=== PATIENT | male | born 1960 | race Caucasian/White ===

== ENCOUNTER → 2017-02-18 | Outpatient (CLI) | payer BC ==
--- NOTE | 2017-02-18 12:14 | XR ---
EXAMINATION TYPE: XR chest 2V DATE OF EXAM: 02/18/2017 COMPARISON: None HISTORY: 57-year-old male with chest pain and shortness of breath TECHNIQUE: Frontal and lateral views FINDINGS: The cardiomediastinal silhouette, aorta, and pulmonary vasculature are within normal limits. Left gre ater than right apical bullous emphysema. No consolidation or pleural effusion. IMPRESSION: Bullous emphysema greatest in the left apex. Otherwise, no acute process seen.
--- NOTE | 2017-02-18 12:22 | CT ---
EXAMINATION TYPE: CT abdomen w con DATE OF EXAM: 02/18/2017 COMPARISON: NONE HISTORY: Stomach pains CT DLP: 616 mGycm Automated exposure control for dose reduction was used. TECHNIQUE: Helical acquisition of images was performed from the lung bases through the top of iliac crest to include entire abdomen. CONTRAST: Performed with Oral Contrast and with IV Contrast, patient injected with 100 mL of Omnipaque 300. FINDINGS: LUNG BASES: No significant abnormality is appreciated. LIVER/GB: There is scattered foci of decreased attenuation within the liver, there are approximately 10 lesions seen, the largest measures approximately 11 mm which statistically are likely to represent cysts. Gallbladder is unremarkable. PANCREAS: No significant abnormality is seen. SPLEEN: No significant abnormality is seen. ADRENALS: No significant abnormality is seen. KIDNEYS: Cortical cyst present on the left extends into the medullary aspect at the midpole level and measures approximately 3 cm in size BOWEL: There are areas of small bowel wall thickening which could be due to peristalsis. No evident obstruction. LYMPH NODES: No significant abnormality is appreciated. OSSEOUS STRUCTURES: Sclerotic focus in the posterior ilium on the right may represent bone island. FREE AIR: No Free Air visible ASCITES: None visible. RETROPERITONEAL ADENOPATHY: No Retroperitoneal Adenopathy visible. OTHER: IMPRESSION: NONSPECIFIC FINDINGS DESCRIBED ABOVE OF QUESTIONABLE CLINICAL SIGNIFICANCE. CONSIDER ADDITIONAL MISHA P INDICATED.
== END | disposition home or self-care (01) ==
LOC: RADCTMAIN 11:08
PROVIDERS: ATTEND Family Medicine
DX: J43.9 Emphysema, unspecified (principal); R10.84 Generalized abdominal pain
CPT/HCPCS: 71020; 74160; Q9967

== ENCOUNTER → 2017-02-28 | Outpatient (CLI) | payer BC ==
--- NOTE | 2017-02-28 11:23 | ECHOF ---
Referral Reason:I51.9 L ventricular hypertrophy MEASUREMENTS -------- HEIGHT: 177.8 cm WEIGHT: 65.8 kg BP: 170/87 RVIDd: 2.8 cm (< 3.3) IVSd: 0.9 cm (0.6 - 1.1) LVIDd: 5.0 cm (3.9 - 5.3) LVPWd: 1.0 cm (0.6 - 1.1) IVSs: 1.5 cm LVIDs: 3.2 cm LVPWs: 1.6 cm LA Diam: 2.9 cm (2.7 - 3.8) LAESV Index (A-L): 20.70 ml/m Ao Diam: 3.7 cm (2.0 - 3.7) AV Cusp: 2.2 cm (1.5 - 2.6) MV EXCURSION: 21.714 mm (> 18.000) MV EF SLOPE: 125 mm/s (70 - 150) EPSS: 0.5 cm MV E Cristobal: 0.57 m/s MV DecT: 356 ms MV A Cristobal: 0.67 m/s MV E/A Ratio: 0.84 RAP: 5.00 mmHg RVSP: 25.10 mmHg FINDINGS -------- Sinus rhythm. This was a technically good study. The left ventricular size is normal. Left ventricular wall thickness is normal. Overall left ventricular systolic function is low-normal with, an EF between 50 - 55 %. The right ventricle is normal in size. Normal LA size by volume 22+/-6 ml/m2. The right atrium is normal in size. The aortic valve is trileaflet, and appears structurally normal. No aortic stenosis or regurgitation. The mitral valve is normal. There is trace to mild mitral regurgitation. Mild tricuspid regurgitation present. Right ventricular systolic pressure is normal at < 35 mmHg. There is no pulmonic regurgitation present. The aortic root is dilated measuring 3.7cm. Normal inferior vena cava with normal inspiratory collapse consistent with estimated right atrial pressure of 5 mmHg. There is no pericardial effusion. CONCLUSIONS -------- 1. Sinus rhythm. 2. There is no pulmonic regurgitation present. 3. The aortic root is dilated measuring 3.7cm. 4. Normal inferior vena cava with normal inspiratory collapse consistent with estimated right atrial pressure of 5 mmHg. 5. There is no pericardial effusion. 6. This was a technically good study. 7. Left ventricular wall thickness is normal. 8. Overall left ventricular systolic function is low-normal with, an EF between 50 - 55 %. 9. Normal LA size by volume 22+/-6 ml/m2. 10. The aortic valve is trileaflet, and appears structurally normal. No aortic stenosis or regurgitation. 11. There is trace to mild mitral regurgitation. 12. Mild tricuspid regurgitation present. 13. Right ventricular systolic pressure is normal at < 35 mmHg. [employer]ANCE BILLER: Camryn Saucedo RDCS
== END | disposition home or self-care (01) ==
LOC: RADECHMAIN 08:34
PROVIDERS: ATTEND Family Medicine
DX: I07.1 Rheumatic tricuspid insufficiency (principal)
CPT/HCPCS: 93306

== ENCOUNTER → 2017-03-11 | Outpatient (CLI) | payer BC ==
--- NOTE | 2017-03-11 08:51 | US ---
EXAMINATION TYPE: US prostate transrectal DATE OF EXAM: 03/11/2017 COMPARISON: NONE CLINICAL HISTORY: R97.2 elevated PSA. This examination was performed using the transrectal probe. EXAM MEASUREMENTS: Gland Size: 5.2 x 2.5 x 4.8cm Volume: 62.4 Predicted PSA: 7.4 Actual PSA (if available):6.2 Seminal vesicles are unremarkable on initial images. Calcified central zone, no evident masses seen. Prostate gland is enlarged in size and heterogeneous in appearance. No worrisome peripheral zone nodu le identified. IMPRESSION: Prostate gland is enlarged in size consistent with BPH, no worrisome peripheral zone nod ule identified.
== END | disposition home or self-care (01) ==
LOC: RADUSMAIN 07:57
PROVIDERS: ATTEND Family Medicine
DX: N40.0 Benign prostatic hyperplasia without lower urinary tract symptoms (principal)
CPT/HCPCS: 76872

== ENCOUNTER 2017-03-22 11:24 | Day surgery (SDC) | payer BC ==
[2017-03-20 13:45] VITALS: BMI 22.6
[~2017-03-22 11:24] MED LIST: LACTATED RINGERS 1,000 ML IV SCH
[2017-03-22 11:41] VITALS: RESP 16; TEMP 96.5
[2017-03-22] MEDS ORDERED: LIDOCAINE 1% 20 ML VIAL (10MG/ML) FOR IV START INTRADERMA ONE (11:41)
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
[2017-03-22] MEDS ORDERED: PROPOFOL 10 MG/ML 20 ML VIAL IV ONE (13:03)
--- NOTE | 2017-03-22 13:33 | P.OP ---
Date of Procedure: 03/22/17 Preoperative Diagnosis: Screening colonoscopy Postoperative Diagnosis: Transverse colon polyp Procedure(s) Performed: Colonoscopy Implants: Anesthesia: MAC Surgeon: Tony Whitman Pathology: other (Transverse colon polyp) Condition: stable Disposition: PACU Indications for Procedure: Operative Findings: Description of Procedure: The patient's placed on the endoscopy table in the lateral position. He received IV sedation. Digital rectal exam was performed which revealed no abnormalities. Flexible colonoscope was then placed patient anus and passed throughout the entire colon. The ileocecal valve lesions. The cecum appeared normal. The ascending colon was normal. The transverse colon there was a plica polyp and this was removed with snare. Remainder the transverse colon appeared normal. The descending; appeared normal. Scope summer back the rectum and this appeared normal. Scope was withdrawn for patient.
[2017-03-22 13:51] VITALS: BP 156/79; PULSE 58
== END 2017-03-22 13:55 | disposition home or self-care (01) ==
LOC: ORWHC2ENDO 11:24
PROVIDERS: ATTEND Surgery
DX: Z12.11 Encounter for screening for malignant neoplasm of colon (principal); D12.3 Benign neoplasm of transverse colon; I10 Essential (primary) hypertension; F17.200 Nicotine dependence, unspecified, uncomplicated; Z91.048 Other nonmedicinal substance allergy status
CPT/HCPCS: 88305; 45385; J2704

== ENCOUNTER → 2017-08-14 | Outpatient (CLI) | payer BC ==
--- NOTE | 2017-08-14 09:44 | MR ---
EXAMINATION TYPE: MR abdomen wo/w con DATE OF EXAM: 08/14/2017 COMPARISON: CT abdomen February 18, 2017. HISTORY: Renal cysts, Abdominal pain, Attn liver and renal cyst CONTRAST: Standard multiplanar, multisequence MRI departmental protocol utilizing 7 mL intravenous Gadavist bernarda olinium contrast. FINDINGS: Liver: Liver is felt overall stable in size and mildly enlarged. There are several rounded subcentime ter T2 hyperintense lesions consistent with simple cysts. One of the larger lesions is noted anterior aspect anterior segment right hepatic lobe image 27 series 501 measuring 10 x 9 mm. Lesion lateral s egment left hepatic lobe appears to have been enhancing septa seen best image 445 series 701. No susp icious nodularity is seen. Main portal vein is patent and not dilated. There is satisfactory bifurcat ion into right left and central portal veins which are all patent. There are patent hepatic veins arik ining into IVC. Gallbladder is felt within normal limits without intraluminal gallstones. There is no suspicious intr ahepatic or extra hepatic biliary dilatation. Extrahepatic biliary ducts are seen best on coronal dyana ge 13 series 201. Kidneys: Corresponding to CT there is 2.6 x 2.4 cm simple appearing cyst lateral aspect mid pole leve l left kidney with slight lobulation on coronal images. There is no additional concerning solid or cy stic renal mass in either kidney. No hydronephrosis is evident bilaterally. Other: Lung bases are grossly clear. Minimal enhancing atelectatic change right lung base dependently is felt present. Pancreas and both adrenal glands are normal in size and appear grossly unremarkable . Patient is very little intra-abdominal fat. There is no suspicious bowel dilatation. There is thick ening of the gastric johnson towards the fundus, this may be product of poor distention, gastritis shou ld be excluded clinically. Visualized osseous structures are intact. IMPRESSION: Simple appearing 2.6 cm cyst centrally left kidney. Scattered small simple appearing cysts throughout the liver, single 7 mm thin-walled cyst with thin septation left aspect liver noted. No worrisome so lid or cystic renal or hepatic mass identified. Possible moderate fundal gastritis. Correlate clinica lly.
== END | disposition home or self-care (01) ==
LOC: RADMRIMAIN 08:09
PROVIDERS: ATTEND Family Medicine
DX: N28.1 Cyst of kidney, acquired (principal); K76.89 Other specified diseases of liver
CPT/HCPCS: 74183; A9581

== ENCOUNTER → 2018-03-24 | Outpatient (CLI) | payer BC ==
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
--- NOTE | 2018-03-24 13:21 | XR ---
EXAMINATION TYPE: XR cervical spine comp DATE OF EXAM: 03/24/2018 TECHNIQUE: Frontal, lateral, oblique, swimmers, and open mouth view of the cervical spine are obtaine d. HISTORY: M54.2 cervicalgia COMPARISON: None FINDINGS: The cervical spine is visualized in its entirety from C1 thru the top of T1 level, it is s atisfactory in alignment without evidence of acute fracture or dislocation. A moderate multilevel deg enerative disc disease is seen from C4 through C7 most pronounced at C5-C6 and C6-C7. This is display ed is uncovertebral hypertrophy and small anterior osteophytes with intervertebral disc space narrowi ng at C6-C7 there is mild. The pre-vertebral soft tissue appears within normal limits. The C1-C2 art iculation is within normal limits on the open mouth view. The oblique images demonstrate at least mi ld neural foraminal narrowing at C4-5 on the right. No significant radiographic neural foraminal narr owing on the left. However degree of neural foraminal narrowing and evaluation of spinal canal stenos is could be performed with MRI. There is incidental note of biapical bullous emphysematous change. IMPRESSION: 1. No acute fracture or malalignment is seen in the cervical spine. 2. Moderate multilevel degenerative disc disease from C4 through C7 with at least mild radiographic n eural foraminal narrowing on the right at C4-C5. Degree of neural foraminal stenosis and evaluation f or disc herniation/spinal canal stenosis could be performed with MRI. 3. Bullous emphysematous changes of the lung apices.
== END | disposition home or self-care (01) ==
LOC: RADXRMAIN 10:47
PROVIDERS: ATTEND Family Medicine
DX: M99.71 Connective tissue and disc stenosis of intervertebral foramina of cervical region (principal); M50.321 Other cervical disc degeneration at C4-C5 level; M19.012 Primary osteoarthritis, left shoulder
CPT/HCPCS: 72050

== ENCOUNTER 2020-01-25 10:09 | Observation (INO) | payer BC ==
[2020-01-25] MEDS ORDERED: ASPIRIN 81 MG PO STA (10:27)
[2020-01-25] MEDS ORDERED: NITROGLYCERIN SL TABS 0.4 MG TAB SUBLINGUAL STA ×3 (10:27)
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
[2020-01-25 11:03] LABS: ALT 11 U/L (4-49); AST 22 U/L (17-59); African American GFR (CKD) >90 (>60 ml/min/1.73 sqM); Albumin 4.5 g/dL (3.5-5.0); Alkaline Phosphatase 63 U/L (38-126); Anion Gap 13 mmol/L; Blood Urea Nitrogen 11 mg/dL (9-20); Calcium 9.6 mg/dL (8.4-10.2); Carbon Dioxide 26 mmol/L (22-30); Chloride 96 mmol/L (98-107); Glucose 134 mg/dL (74-99); Magnesium 1.9 mg/dL (1.6-2.3); Non-African American GFR(CKD) >90 (>60 ml/min/1.73 sqM); Potassium 3.7 mmol/L (3.5-5.1); Sodium 135 mmol/L (137-145); Total Bilirubin 0.9 mg/dL (0.2-1.3); Total Protein 7.4 g/dL (6.3-8.2)
--- NOTE | 2020-01-25 11:12 | XR ---
EXAMINATION TYPE: XR chest 2V DATE OF EXAM: 01/25/2020 COMPARISON: Chest x-ray February 18, 2017. HISTORY: Dehydrated for one week. Weakness. TECHNIQUE: Two Frontal and lateral views of the chest are obtained. FINDINGS: Background Chronic emphysematous change with moderate to severe upper lung fibrotic scarring and bleb formation is redemonstrated There is no new suspicious focal air space opacity, pleural effusion, o r pneumothorax seen. The cardiac silhouette size remains within normal limits. The osseous structu res are intact. IMPRESSION: Chronic changes without new acute pulmonary process.
[2020-01-25 11:19] LABS: Anisocytosis Slight; Basophils % (A) 0 %; Eosinophils # (A) 0.1 k/uL (0-0.7); Eosinophils % (A) 1 %; HCT 40.6 % (39.0-53.0); HGB 13.3 gm/dL (13.0-17.5); Hypochromasia Slight; Lymphocytes # (A) 1.4 k/uL (1.0-4.8); Lymphocytes % (A) 9 %; MCH 27.5 pg (25.0-35.0); MCHC 32.7 g/dL (31.0-37.0); MCV 84.3 fL (80.0-100.0); Monocytes # (A) 0.9 k/uL (0-1.0); Monocytes % (A) 6 %; Neutrophils # (A) 13.8 k/uL (1.3-7.7); Neutrophils % (A) 84 %; Platelet Count 497 k/uL (150-450); RBC 4.82 m/uL (4.30-5.90); RDW 16.1 % (11.5-15.5); WBC 16.3 k/uL (3.8-10.6)
[2020-01-25 11:30] LABS: D-Dimer 0.43 mg/L FEU (<0.60); Partial Thromboplastin Time 26.1 sec (22.0-30.0); Prothrombin Time 10.3 sec (9.0-12.0)
[2020-01-25] MEDS ORDERED: NITROGLYCERIN SL TABS 0.4 MG TAB SUBLINGUAL PRN (11:44)
[2020-01-25] MEDS ORDERED: SODIUM CHLORIDE 0.9% 1,000 ML IV STA (13:16)
[2020-01-25] MEDS: NITROGLYCERIN OINT 1 INCH/GM PACKET TOPICAL SCH ×3 (13:20→20:02)
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
[2020-01-25] MEDS: amLODIPine 10 MG TAB PO SCH (13:54)
[2020-01-25] MEDS: LISINOPRIL 10 MG TAB PO SCH (13:54)
[2020-01-25] MEDS: ONDANSETRON 4 MG/2 ML VIAL IVP PRN (15:05)
[2020-01-25 15:27] VITALS: BMI 21.2
--- NOTE | 2020-01-25 19:04 | CT ---
EXAMINATION TYPE: CT chest wo con DATE OF EXAM: 01/25/2020 Comparison chest x-ray 01/25/2020 HISTORY: CHEST PAIN CT DLP: 257.3 mGycm. Automated Exposure Control for Dose Reduction was Utilized. TECHNIQUE: CT scan of the thorax is performed without IV contrast. FINDINGS: Lack of intravenous contrast could compromise sensitivity. LUNGS: The lungs are apical bullous formation. There is no pleural effusion or pneumothorax seen. The tracheobronchial tree is patent. MEDIASTINUM: Lack of IV contrast is noted to limit evaluation for mediastinal and especially hilar ad enopathy. There are no definitive greater than 1 cm hilar or mediastinal lymph nodes. No cardiomega ly or pericardial effusion is seen. OTHER: Thoracic spinal curvature. No additional significant abnormality is seen. IMPRESSION: Apical bullous disease.
--- NOTE | 2020-01-25 19:48 | HP ---
HISTORY AND PHYSICAL 60-year-old white male who states he has had emesis with any water intake for the past week. He is unable to eat any food due to significant nausea and vomiting. He quit marijuana and heavy tobacco and his chest x-ray shows pulmonary blebs, COPD. He was admitted for atypical chest pain, but I suspect this is mostly significant abdominal pain, unclear etiology. Sounds like he needs EGD at this point due to severe to peptic ulcer disease versus an ulcer. His COPD and shortness of breath and pretty persistent vomiting for the past week despite oral intake with water only. he came to the hospital. EKG shows sinus rhythm. Nonspecific changes. Chest x-ray shows COPD/pulmonary blebs. White count 16.3, hemoglobin is 13.3. D-dimer 0.43, magnesium 1.9, creatinine 0.63, potassium 3.7, sodium 135. He has lost a lot of weight he states recently. REVIEW OF SYSTEMS: Fourteen-point review of systems as mentioned above, negative. PHYSICAL EXAMINATION: Blood pressure is 190s over 88. He has been started back on 2 blood pressure medications, amlodipine and lisinopril. CONSTITUTIONAL: He is weak, frail, looks thin, cachectic. Head normocephalic atraumatic. Pupils equal, round, reactive. LUNGS: Decreased breath sounds x4. HEART: S1, S2. ABDOMEN is tender to palpation and guarding in the epigastric area. No rebound. Positive bowel sounds. EXTREMITIES 2+ edema. NEUROLOGIC: Cranial nerves are intact. ASSESSMENT: 1. Atypical chest pain, abdominal pain, rule out peptic ulcer disease versus ulcer. 2. Hypertension. 3. Slight malnutrition. 4. Heavy alcohol and marijuana use, quit a week ago. Continue with blood pressure medications. Ultrasound of the abdomen. CT scan of the chest. Echo was ordered also. Prognosis guarded. I suspect he will need EGD in the near future for which has been consulted at this time. MMODL / IJN: [id number] /
--- NOTE | 2020-01-25 20:23 | US ---
EXAMINATION TYPE: US abdomen complete DATE OF EXAM: 01/25/2020 COMPARISON: CT same date CLINICAL HISTORY: emesis/pain. Emesis/pain x 1 week. Hx smoker. EXAM MEASUREMENTS: Liver Length: 15.0 cm Gallbladder Wall: 0.21 cm CBD: 0.27 cm Spleen: Not visualized. Right Kidney: 10.9 x 6.1 x 4.8 cm Left Kidney: 10.4 x 5.2 x 6.3 cm Pancreas: Limited due to overlying bowel gas. Liver: Anechoic areas seen. Largest measured. Septated anechoic area seen left lobe: 1.3 x 1.1 x 1.0 cm. Largest area right lobe measures: 1.0 x 1.1 x 0.7 cm., Likely represent cysts and correlate with patient's CT. Gallbladder: Internal echoes are seen. Measures 8.1 cm in length. Evidence for sonographic Nagy's sign: No CBD: Appears wnl. Spleen: Not visualized due to gas. Right Kidney: No hydronephrosis or masses seen Left Kidney: Anechoic area seen mid-pole measurin.6 x 2.8 x 3.0 cm. Images taken in prone positi on due to small patient body habitus and rib shadowing. Upper IVC: Appears wnl in its visualized portion. Abd Aorta: Atherosclerotic changes seen. *Measures 2.7 cm AP proximally-ectatic. IMPRESSION: Suspect tumefactive sludge in the gallbladder. Simple cyst left kidney.
[2020-01-25] MEDS ORDERED: hydrALAZINE HCL 20 MG/ML 1 ML VIAL IVP PRN (20:49)
[2020-01-26] MEDS: NITROGLYCERIN OINT 1 INCH/GM PACKET TOPICAL SCH ×5 (00:58→22:51)
[2020-01-26] MEDS: ONDANSETRON 4 MG/2 ML VIAL IVP PRN (01:15)
[2020-01-26 07:21] LABS: Cholesterol 149 mg/dL (<200); HDL Cholesterol 62 mg/dL (40-60); LDL Cholesterol,Calculated 75 mg/dL (0-99); Triglycerides 60 mg/dL (<150)
[2020-01-26] MEDS: ASPIRIN 81 MG PO SCH (08:07)
[2020-01-26] MEDS: amLODIPine 10 MG TAB PO SCH (08:07)
[2020-01-26] MEDS: LISINOPRIL 10 MG TAB PO SCH (08:07)
[2020-01-26] MEDS ORDERED: ASPIRIN 325 MG TAB PO SCH (09:00)
--- NOTE | 2020-01-26 10:00 | ECHOF ---
Referral Reason:cp, sob MEASUREMENTS -------- HEIGHT: 177.8 cm WEIGHT: 67.1 kg BP: 190/94 RVIDd: 2.7 cm (< 3.3) IVSd: 1.5 cm (0.6 - 1.1) LVIDd: 3.5 cm (3.9 - 5.3) LVPWd: 1.4 cm (0.6 - 1.1) IVSs: 1.8 cm LVIDs: 2.7 cm LVPWs: 2.1 cm LA Diam: 2.6 cm (2.7 - 3.8) LAESV Index (A-L): 23.30 ml/m Ao Diam: 3.8 cm (2.0 - 3.7) AV Cusp: 2.0 cm (1.5 - 2.6) MV EXCURSION: 18.612 mm (> 18.000) MV EF SLOPE: 57 mm/s (70 - 150) EPSS: 0.8 cm MV E Cristobal: 0.65 m/s MV DecT: 390 ms MV A Cristobal: 0.53 m/s MV E/A Ratio: 1.22 RAP: 5.00 mmHg RVSP: 30.88 mmHg FINDINGS -------- This was a technically good study. The left ventricular size is normal. There is moderate concentric left ventricular hypertrophy. O verall left ventricular systolic function is low-normal with, an EF between 50 - 55 %. The right ventricle is normal in size. Normal LA size by volume 22+/-6 ml/m2. The right atrium is normal in size. Interatrial and interventricular septum intact. The aortic valve is trileaflet and appears structurally normal. Trace amount of aortic regurgitatio n. Mild mitral regurgitation is present. Mild tricuspid regurgitation present. Right ventricular systolic pressure is normal at < 35 mmHg. Trace/mild (physiologic) pulmonic regurgitation. The aortic root size is normal. Normal inferior vena cava with normal inspiratory collapse consistent with estimated right atrial pre ssure of 5 mmHg. There is no pericardial effusion. CONCLUSIONS -------- 1. This was a technically good study. 2. The left ventricular size is normal. 3. There is moderate concentric left ventricular hypertrophy. 4. Overall left ventricular systolic function is low-normal with, an EF between 50 - 55 %. 5. The right ventricle is normal in size. 6. Normal LA size by volume 22+/-6 ml/m2. 7. The right atrium is normal in size. 8. Interatrial and interventricular septum intact. 9. The aortic valve is trileaflet and appears structurally normal. 10. Trace amount of aortic regurgitation. 11. Mild mitral regurgitation is present. 12. Mild tricuspid regurgitation present. 13. Right ventricular systolic pressure is normal at < 35 mmHg. 14. Trace/mild (physiologic) pulmonic regurgitation. 15. The aortic root size is normal. 16. Normal inferior vena cava with normal inspiratory collapse consistent with estimated right atrial pressure of 5 mmHg. 17. There is no pericardial effusion. BILLET HEADER: Camryn Saucedo RDCS
[2020-01-26] MEDS ORDERED: IV FLUID CONTINUATION 1,000 ML IV ONE (11:49)
[2020-01-26] MEDS ORDERED: PROPOFOL 10 MG/ML 20 ML VIAL IV ONE (11:49)
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
--- NOTE | 2020-01-26 12:08 | P.OP ---
Date of Procedure: 01/26/20 Preoperative Diagnosis: Epigastric pain Postoperative Diagnosis: Mild duodenitis Large prepyloric antral ulcer Esophagitis Procedure(s) Performed: EGD Anesthesia: MAC Surgeon: Tony Whitman Pathology: other (Duodenum, prepyloric ulcer, esophagus) Condition: stable Disposition: PACU Description of Procedure: The patient's placed on the endoscopy table in the lateral position. He received IV sedation. The gastroscope placed oropharynx and passed in into the esophagus and stomach and then through the pylorus. First and second portion duodenum appeared mildly inflamed. Biopsies performed. Scope was then back through the pylorus. There was a large prepyloric ulcer seen. There is no act van bleeding. This area is biopsied. Scope was unretroflexed and remainder stomach appeared normal. The GE junction was at 40 cm. The distal esophagus. Inflamed a biopsies performed. The proximal esophagus appeared normal. Scope was withdrawn for patient.
--- NOTE | 2020-01-26 13:23 | P.PN ---
Subjective HISTORY OF PRESENTING ILLNESS This is a pleasant 60-year-old male past medical history significant for hypertension, heavy tobacco and marijuana use. 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 Patient was seen and examined in no acute distress. He has had no further episo damian of vomiting or chest discomfort since admission. He has also been seen in evaluation by surgical services and is scheduled to undergo an EGD. CT of the chest obtained revealed an apical bullous disease. Echocardiogram revealed preserved LV systolic function with ejection fraction 50-55%, moderate concentric LVH, mild MR and mild TR. Blood pressure 124/82 heart rate 83 afebrile maintaining oxygen saturation on room air. Laboratory data reviewed, cardiac enzymes negative 3, LDL 75 and HDL 62. Currently maintained on amlodipine 10 mg daily, aspirin 81 mg daily and lisinopril 10 mg daily. PHYSICAL EXAMINATION CONSTITUTIONAL: No apparent distress. Frail. HEENT: Head is normocephalic. Pupils are equal, round. Sclerae anicteric. Mucous membranes of the mouth are moist. No JVD. No carotid bruit. CHEST EXAMINATION: Lungs are clear to auscultation. No chest wall tenderness is noted on palpation or with deep breathing. HEART EXAMINATION: Regular rate and rhythm. S1, S2 heard. No murmurs, gallops or rub. Distant heart sounds. EXTREMITIES: 2+ peripheral pulses, no lower extremity edema and no calf tenderness. ASSESSMENT Chest pain, atypical Hypertension Leukocytosis Heavy alcohol and marijuana use, quit both 1-week ago PLAN Blood pressure is controlled on current regimen. Proceed with stress test as previously ordered. If stress test is normal he is stable for discharge from a cardiac perspective. Recommend ongoing tobacco and marijuana cessation. Follow-up in the office with Dr. Saavedra in 2 weeks. Nurse Practitioner note has been reviewed, I agree with a documented findings and plan of care. Patient was seen and examined. Objective - Vital Signs Vital signs: Vital Signs Temp 97.9 F 01/26/20 08:05 Pulse 83 01/26/20 12:25 Resp 14 01/26/20 12:25 BP 124/82 01/26/20 12:25 Pulse Ox 100 01/26/20 12:25 Intake & Output 01/25/20 01/26/20 01/26/20 18:59 06:59 18:59 Intake Total 200 Balance 200 Weight 67.132 kg 55.1 kg 55.1 kg Intake: IV 200 Other: Voiding Method Toilet Toilet Toilet # Voids 2 - Labs CBC & Chem 7: 01/25/20 10:38 01/25/20 10:38 Labs: Abnormal Lab Results - Last 24 Hours (Table) 01/26/20 Range/Units 06:47 HDL Cholesterol 62 H (40-60) mg/dL
[2020-01-26] MEDS ORDERED: Potassium Replacement Protocol 1 EACH MISC MISCELLANE PRN (14:56)
--- NOTE | 2020-01-26 15:25 | ECHOS ---
STRESS ECHOCARDIOGRAM LUMASON: INDICATIONS: Chest pain. MEDICATIONS: None. BASELINE HEART RATE: 89 BASELINE BLOOD PRESSURE: 139/90 MAXIMUM HEART RATE: 150 MAXIMUM BLOOD PRESSURE: 159/86 85% MPHR: 136 100% MPHR: 160 METS: 6.8 MAXIMUM STAGE REACHED: 2 TOTAL EXERCISE TIME: 5;00 INDICATION: Chest pain Baseline EKG shows sinus rhythm, PVCs, some nonspecific ST-T wave changes. Patient exercised on Herbert protocol for a total of 5 minutes achieving 6 METS, 94% of predicted maximal heart rate without chest pain. At peak exercise, there was [address]-segment depression noted in the inferolateral leads. Baseline echo shows normal left ventricular size, wall motion and systolic function. There is concentric left ventricular hypertrophy. Postexercise, there is normal hyperdynamic response of all segments of myocardium noted. CONCLUSION: 1. Limited exercise tolerance. 2. Inconclusive EKG part of the stress test due to baseline EKG abnormalities. 3. Negative stress echo. MMDIANNAL / IJN: [id number] /
[2020-01-26 21:06] VITALS: RESP 18
--- NOTE | 2020-01-26 22:57 | PN ---
PROGRESS NOTE This patient is a 60-year-old white male, status post EGD that showed a large gastric antral ulcer, 2 cm. Remains on medication for ulcers, Protonix 40 mg a day. He is getting Norvasc, Zestril for hypertension. Prognosis is guarded. Vital signs are stable. Afebrile. CT of the chest was reviewed with him. He had a stress echo today. He had a negative stress echo. Patient will possibly be discharged home tomorrow. Outpatient workup for gallbladder. Please see further orders. MMODL / IJN: [id number] /
[2020-01-27] MEDS: NITROGLYCERIN OINT 1 INCH/GM PACKET TOPICAL SCH (03:19)
[2020-01-27] MEDS ORDERED: PANTOPRAZOLE 40 MG TABLET PO SCH (07:30)
[2020-01-27] MEDS: ASPIRIN 81 MG PO SCH (08:05)
[2020-01-27] MEDS: LISINOPRIL 10 MG TAB PO SCH (08:05)
[2020-01-27] MEDS: amLODIPine 10 MG TAB PO SCH (08:05)
[2020-01-27 08:36] LABS: Anisocytosis Slight; Basophils % (A) 0 %; Eosinophils # (A) 0.2 k/uL (0-0.7); Eosinophils % (A) 1 %; HCT 34.2 % (39.0-53.0); HGB 10.6 gm/dL (13.0-17.5); Hypochromasia Slight; Lymphocytes # (A) 1.7 k/uL (1.0-4.8); Lymphocytes % (A) 10 %; MCH 26.5 pg (25.0-35.0); MCV 85.7 fL (80.0-100.0); Mean Platelet Volume 6.8; Monocytes % (A) 6 %; Neutrophils # (A) 13.1 k/uL (1.3-7.7); Neutrophils % (A) 81 %; Platelet Count 464 k/uL (150-450); RBC 3.99 m/uL (4.30-5.90); RDW 16.6 % (11.5-15.5); WBC 16.1 k/uL (3.8-10.6)
[2020-01-27 09:19] LABS: ALT 10 U/L (4-49); AST 13 U/L (17-59); African American GFR (CKD) >90 (>60 ml/min/1.73 sqM); Albumin 3.7 g/dL (3.5-5.0); Alkaline Phosphatase 50 U/L (38-126); Anion Gap 9 mmol/L; Blood Urea Nitrogen 34 mg/dL (9-20); Carbon Dioxide 28 mmol/L (22-30); Chloride 94 mmol/L (98-107); Glucose 153 mg/dL (74-99); Non-African American GFR(CKD) >90 (>60 ml/min/1.73 sqM); Potassium 4.1 mmol/L (3.5-5.1); Sodium 131 mmol/L (137-145); Total Bilirubin 0.3 mg/dL (0.2-1.3); Total Protein 6.3 g/dL (6.3-8.2)
--- NOTE | 2020-01-27 09:22 | P.PN ---
Subjective HISTORY OF PRESENTING ILLNESS This is a pleasant 60-year-old male past medical history significant for hypertension, heavy tobacco and marijuana use. 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 He underwent stress echo yesterday that was negative for ischemia. He also had an EGD revealing an ulcer and esophagitis. He is seen and examined laying flat resting comfortably in bed in no acute distress. He continues to feel nauseated. No chest pain, shortness of breath, dizziness, palpitations or vomiting. Blood pressure 125/67 heart rate 69 afebrile and maintaining oxygen saturation on room air. PHYSICAL EXAMINATION CONSTITUTIONAL: No apparent distress. Frail. HEENT: Head is normocephalic. Pupils are equal, round. Sclerae anicteric. Mucous membranes of the mouth are moist. No JVD. No carotid bruit. CHEST EXAMINATION: Lungs are clear to auscultation. No chest wall tenderness is noted on palpation or with deep breathing. HEART EXAMINATION: Regular rate and rhythm. S1, S2 heard. No murmurs, gallops or rub. Distant heart sounds. EXTREMITIES: 2+ peripheral pulses, no lower extremity edema and no calf tenderness. ASSESSMENT Chest pain, atypical. Normal stress test. Ulcer and esophagitis Hypertension Leukocytosis Heavy alcohol and marijuana use, quit both 1-week ago PLAN Blood pressure is well controlled on current regimen. Stable for discharge from a cardiac perspective. Follow up in the office with Dr. Saavedra as needed. Nurse Practitioner note has been reviewed, I agree with a documented findings and plan of care. Patient was seen and examined. Objective - Vital Signs Vital signs: Vital Signs Temp 98.2 F 01/27/20 04:00 Pulse 69 01/27/20 04:00 Resp 18 01/27/20 04:00 BP 125/67 01/27/20 04:00 Pulse Ox 96 01/27/20 04:00 Intake & Output 01/26/20 01/27/20 01/27/20 18:59 06:59 18:59 Intake Total 320 Balance 320 Weight 55.1 kg Intake: IV 200 Oral 120 Other: Voiding Method Toilet Toilet # Voids 2 1 - Labs CBC & Chem 7: 01/27/20 08:17 01/25/20 10:38 Labs: Abnormal Lab Results - Last 24 Hours (Table) 01/27/20 Range/Units 08:17 WBC 16.1 H (3.8-10.6) k/uL RBC 3.99 L (4.30-5.90) m/uL Hgb 10.6 L (13.0-17.5) gm/dL Hct 34.2 L (39.0-53.0) % RDW 16.6 H (11.5-15.5) % Plt Count 464 H (150-450) k/uL Neutrophils # 13.1 H (1.3-7.7) k/uL
[2020-01-27 09:32] VITALS: BP 114/82; PULSE 93; TEMP 98.1
--- NOTE | 2020-01-27 09:44 | P.DS ---
Providers Date of admission: 01/25/20 11:45 Expected date of discharge: 01/27/20 Attending physician: Buzz Craig Consults: 01/25/20 11:45 Consult Physician Urgent Consulting Provider: Sandie Doran Consult Reason/Comments: cp Do you want consulting provider notified?: Yes 01/25/20 17:13 Consult Physician Urgent Consulting Provider: Tony Whitman Consult Reason/Comments: egd Do you want consulting provider notified?: Yes Primary care physician: [facility] Hospital Course: Final Diagnoses: Chest pain, atypical. Stress test reported as normal Mild duodenitis large prepyloric antral ulcer Esophagitis Hyponatremia Hypertension Leukocytosis Heavy daily alcohol and marijuana use quit both one week ago Gallbladder sludge per ultrasound, further outpatient follow-up recommended Simple left kidney cyst Liver anecolic mass, likely cysts, further follow-up outpatient recommended Apical bullous disease per CT Hospital course: This is 60-year-old gentleman admitted with chest pain, significant daily alcohol marijuana consumption, recently quit both marijuana and alcohol 1 week prior. Evaluated by cardiology and general surgery. Stress echo reported negative for ischemia. Blood pressure controlled. EGD reported a large prepyloric antral ulcer, duodenitis, esophagitis. Maintained on PPI. Cleared by both GI and cardiology for discharge. Patient is being discharged home today in a stable condition with guarded prognosis. The impression and plan of care has been dictated as directed. : I performed a history and examination of this patient, discussed the same with the dictator. I agree with the dictator's note ,documented as a scribe. Any additional findings or plans will be noted. Patient Condition at Discharge: Stable Plan - Discharge Summary Discharge Rx Participant: No New Discharge Prescriptions: New Pantoprazole Sodium [Protonix] 40 mg PO DAILY #30 tab amLODIPine [Norvasc] 10 mg PO DAILY #90 tab Lisinopril [Zestril] 10 mg PO DAILY #90 tab Discharge Medication List Pantoprazole Sodium [Protonix] 40 mg PO DAILY #30 tab 01/26/20 [Rx] Lisinopril [Zestril] 10 mg PO DAILY #90 tab 01/27/20 [Rx] amLODIPine [Norvasc] 10 mg PO DAILY #90 tab 01/27/20 [Rx] Follow up Appointment(s)/Referral(s): Nathan Saavedra MD [STAFF PHYSICIAN] - 02/11/20 4:30 pm Tony Whitman MD [STAFF PHYSICIAN] - 1 Week Buzz Craig MD [Primary Care Provider] - 3 Days Ambulatory/Diagnostic Orders: Complete Blood Count w/diff [LAB.AMB] Time Frame: 3 Days, Location: None Selected Activity/Diet/Wound Care/Special Instructions: Aspirin currently on hold secondary to large prepyloric antral ulcer, reevaluate outpatient .please bring your [place] driver's license, insurance cards, and medication list with you to your cardiology appointment.
--- NOTE | 2020-01-27 10:41 | P.PN ---
Subjective Progress Note Date: 01/27/20 CHIEF COMPLAINT: Abdominal pain HISTORY OF PRESENT ILLNESS: Patient is status post EGD revealing mild duodenitis, large prepyloric antral ulcer, and esophagitis. Patient examined this morning at the bedside. He denies abdominal pain. Tolerating diet. He is hoping to be discharged home today. PHYSICAL EXAM: VITAL SIGNS: Reviewed. GENERAL: Well-developed in no acute distress. HEENT: No sclera icterus. Extraocular movements grossly intact. Moist buccal mucosa. Head is atraumatic, normocephalic. ABDOMEN: Soft. Nondistended. Nontender. NEUROLOGIC: Alert and oriented. Cranial nerves II through XII grossly intact. ASSESSMENT: 1. Abdominal pain, status post EGD revealing mild duodenitis, large prepyloric antral ulcer, and esophagitis PLAN: -Continue diet as tolerated -Continue protonix -Stable for discharge home today. Patient to follow up outpatient with Dr. Whitman Nurse practitioner note has been reviewed by physician. Signing provider agrees with the documented findings, assessment, and plan of care. Objective - Vital Signs Vital signs: Vital Signs Temp 98.1 F 01/27/20 08:00 Pulse 93 01/27/20 08:00 Resp 18 01/27/20 08:00 BP 114/82 01/27/20 08:00 Pulse Ox 96 01/27/20 04:00 Intake & Output 01/26/20 01/27/20 01/27/20 18:59 06:59 18:59 Intake Total 320 Balance 320 Weight 55.1 kg Intake: IV 200 Oral 120 Other: Voiding Method Toilet Toilet # Voids 2 1 - Labs CBC & Chem 7: 01/27/20 08:17 01/27/20 08:17 Labs: Abnormal Lab Results - Last 24 Hours (Table) 01/27/20 01/27/20 Range/Units 08:17 08:17 WBC 16.1 H (3.8-10.6) k/uL RBC 3.99 L (4.30-5.90) m/uL Hgb 10.6 L (13.0-17.5) gm/dL Hct 34.2 L (39.0-53.0) % RDW 16.6 H (11.5-15.5) % Plt Count 464 H (150-450) k/uL Neutrophils # 13.1 H (1.3-7.7) k/uL Sodium 131 L (137-145) mmol/L Chloride 94 L (98-107) mmol/L BUN 34 H (9-20) mg/dL Creatinine 0.63 L (0.66-1.25) mg/dL Glucose 153 H (74-99) mg/dL AST 13 L (17-59) U/L
== END 2020-01-27 11:13 | disposition home or self-care (01) ==
LOC: EC 10:09 → 1SOBS 11:45
PROVIDERS: ADMIT Family Medicine; ATTEND Family Medicine
DX: R07.89 Other chest pain (principal); K29.80 Duodenitis without bleeding; K25.9 Gastric ulcer, unspecified as acute or chronic, without hemorrhage or perforation; K20.9 Esophagitis, unspecified; K29.50 Unspecified chronic gastritis without bleeding; E87.1 Hypo-osmolality and hyponatremia; I10 Essential (primary) hypertension; D72.829 Elevated white blood cell count, unspecified; N28.1 Cyst of kidney, acquired; R16.0 Hepatomegaly, not elsewhere classified; J43.9 Emphysema, unspecified; M54.5 Low back pain; K59.00 Constipation, unspecified; R63.4 Abnormal weight loss; Z68.1 Body mass index [BMI] 19.9 or less, adult; Z79.899 Other long term (current) drug therapy; Z79.82 Long term (current) use of aspirin; Z20.828 Contact with and (suspected) exposure to other viral communicable diseases; Z87.01 Personal history of pneumonia (recurrent); Z86.010 Personal history of colon polyps; Z87.891 Personal history of nicotine dependence; Z82.49 Family history of ischemic heart disease and other diseases of the circulatory system; Z80.42 Family history of malignant neoplasm of prostate; Z82.3 Family history of stroke
CPT/HCPCS: 96374; 99285; 36415; 93005 ×2; 93306; 93351; 85379; 88305; 80061; 80053 ×2; 83735; 84484; 85025 ×2; 85610; 85730; 88342; 71046; 76700; 71250; 43239; G0378 ×3; U0003; J0360; J2405 ×2

== ENCOUNTER 2020-02-15 06:07 | Day surgery (SDC) | payer BC ==
[2020-02-09 16:08] VITALS: BMI 19.1
[~2020-02-15 06:07] MED LIST changes: +ACETAMINOPHEN TAB 500 MG TAB PO ONE; +DEXAMETHASONE SOD PHOSPHATE 10 MG/ML 1 ML VIAL IV ONE; +HEPARIN SODIUM,PORCINE 5,000 UNIT/ML 1 ML VIAL SQ ONE; +HYDROmorphone 0.5 MG/0.5 ML SYRINGE IVP PRN; +ONDANSETRON 4 MG/2 ML VIAL IVP ONE
[2020-02-15 06:57] VITALS: RESP 16; TEMP 97.5
[2020-02-15] MEDS ORDERED: HEPARIN SODIUM,PORCINE 5,000 UNIT/ML 1 ML VIAL ONE (07:08)
[2020-02-15] MEDS ORDERED: ONDANSETRON 4 MG/2 ML VIAL ONE (07:08)
[2020-02-15] MEDS ORDERED: LIDOCAINE 1% (10MG/ML) FOR IV START INTRADERMA ONE (07:16)
[2020-02-15] MEDS ORDERED: NEOSTIGMINE 1 MG/ML 10 ML VIAL ONE (07:35)
[2020-02-15] MEDS ORDERED: KETOROLAC 30 MG/ML 1 ML VIAL ONE (07:35)
[2020-02-15] MEDS ORDERED: fentaNYL (PF) 50 MCG/ML 2 ML AMP ONE (07:35)
[2020-02-15] MEDS ORDERED: MIDAZOLAM 2 MG/2 ML VIAL ONE (07:35)
[2020-02-15] MEDS ORDERED: SUCCINYLCHOLINE CHLORIDE 100 MG/5 ML SYR IV ONE (07:35)
[2020-02-15] MEDS ORDERED: ROCURONIUM BROMIDE 10 MG/ML 5 ML VIAL IV ONE (07:35)
[2020-02-15] MEDS ORDERED: LIDOCAINE 1% INJ 10MG/ML (20 ML MDV) ONE (07:35)
[2020-02-15] MEDS ORDERED: PROPOFOL 10 MG/ML 20 ML VIAL IV ONE (07:35)
[2020-02-15] MEDS ORDERED: GLYCOPYRROLATE 0.2 MG/ML 2 ML VIAL ONE (07:35)
[2020-02-15] MEDS ORDERED: BUPIVACAIN-EPI 0.25%-1:200,000 30 ML VIAL SQ ONE (07:54)
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
--- NOTE | 2020-02-15 08:18 | P.OP ---
Date of Procedure: 02/15/20 Preoperative Diagnosis: Cholecystitis Cholelithiasis Postoperative Diagnosis: Cholecystitis Cholelithiasis Procedure(s) Performed: Laparoscopic cholecystectomy Anesthesia: ELIZABETH Surgeon: Tony Whitman Estimated Blood Loss (ml): 5 Pathology: other (Gallbladder) Condition: stable Disposition: PACU Description of Procedure: The patient was placed on the operating table. The patient received a general endotracheal tube anesthesia. The patients abdomen was prepped and draped in the usual sterile fashion. Through an infraumbilical stab incision, the fascia of the anterior abdominal wall was grasped with a pair of Kochers and then the Veress needle was placed in the peritoneal cavity. Position of the Veress needle was confirmed with positive drop test. The abdomen was then insufflated. After adequate insufflation, the 10 mm trocar was placed in the peritoneal cavity. Following this the laparoscope was placed in the peritoneal cavity. The patient was placed in the head-up, right side up position and then a 5 mm trocar was placed in the right lateral and right subcostal position under direct visualization. A 8 mm trocar was placed in the epigastric position. The gallbladder was grasped in the fundus and infundibulum. Traction on the gallbladder was placed in the lateral and the cephalad positions. The triangle of Calot was visualized.. The cystic duct was bluntly dissected until the union of the cystic duct and common bile duct wa s seen. A critical view of safety was achieved. The cystic duct was then divided and sealed with the Harmonic scissors. A PDS Endoloop was then placed throughout the cystic duct stump. The cystic artery divided and sealed with the Harmonic scissors. The gallbladder was then removed from the liver bed using Harmonic scissors. The gallbladder was then extracted through the epigastric port site. Operative field was checked for any bleeding spots and Harmonic scissors was used to coagulate the liver bed. The abdomen was irrigated. The trocars were removed. The skin was closed using interrupted 3-0 Vicryl suture. Dermabond dressing were applied. The patient tolerated the procedure well.
[2020-02-15 10:10] VITALS: BP 125/67; PULSE 65
== END 2020-02-15 10:09 | disposition home or self-care (01) ==
LOC: OR 06:07
PROVIDERS: ATTEND Surgery
DX: K81.1 Chronic cholecystitis (principal); I10 Essential (primary) hypertension; K21.9 Gastro-esophageal reflux disease without esophagitis; K08.89 Other specified disorders of teeth and supporting structures; Z79.899 Other long term (current) drug therapy; Z87.891 Personal history of nicotine dependence; Z87.01 Personal history of pneumonia (recurrent); Z87.19 Personal history of other diseases of the digestive system; Z86.39 Personal history of other endocrine, nutritional and metabolic disease; Z98.890 Other specified postprocedural states; Z90.89 Acquired absence of other organs; Z87.828 Personal history of other (healed) physical injury and trauma; Z79.82 Long term (current) use of aspirin; Z87.11 Personal history of peptic ulcer disease; Z82.49 Family history of ischemic heart disease and other diseases of the circulatory system; Z80.42 Family history of malignant neoplasm of prostate; Z82.3 Family history of stroke
CPT/HCPCS: 88304; 47562; J2250; J1644; J1100; J2710; J0690; J2405; J2001; J3010; J1885; J0330; J2704; J1170

== ENCOUNTER 2020-03-03 09:49 | Day surgery (SDC) | payer BC ==
[2020-03-01 14:47] VITALS: BMI 20.7
[~2020-03-03 09:49] MED LIST changes: -ACETAMINOPHEN TAB 500 MG TAB PO ONE; -DEXAMETHASONE SOD PHOSPHATE 10 MG/ML 1 ML VIAL IV ONE; -HEPARIN SODIUM,PORCINE 5,000 UNIT/ML 1 ML VIAL SQ ONE; -HYDROmorphone 0.5 MG/0.5 ML SYRINGE IVP PRN; -ONDANSETRON 4 MG/2 ML VIAL IVP ONE
[2020-03-03 10:16] VITALS: RESP 16; TEMP 97
[2020-03-03] MEDS ORDERED: PROPOFOL 10 MG/ML 20 ML VIAL IV ONE (10:45)
[2020-03-03] MEDS ORDERED: LIDOCAINE 1% INJ 10MG/ML (20 ML MDV) ONE (10:45)
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
--- NOTE | 2020-03-03 10:57 | P.OP ---
Date of Procedure: 03/03/20 Preoperative Diagnosis: Peptic ulcer disease Postoperative Diagnosis: Healing prepyloric ulcer Procedure(s) Performed: EGD Anesthesia: MAC Surgeon: Tony Whitman Pathology: other (Antrum) Condition: stable Disposition: PACU Description of Procedure: Patient's placed on the endoscopy table in the lateral position. He received IV sedation. The gastroscope placed oropharynx passed in the esophagus and stomach. Scope was placed through the pylorus. The first second portion of duodenum appeared normal. Scope was then brought back through the pylorus and the prepyloric area there was a very small ulcer seen. Was no evidence of any GI bleed. The ulcer was not biopsied. The antrum was then biopsied. The remainder the stomach appeared normal. The GE junction was at 40 cm. The distal esophagus appeared normal. The proximal esophagus appeared normal. Scope was withdrawn for patient.
[2020-03-03 11:19] VITALS: BP 131/80; PULSE 51
== END 2020-03-03 12:00 | disposition home or self-care (01) ==
LOC: ORWHC2ENDO 09:49
PROVIDERS: ATTEND Surgery
DX: K29.50 Unspecified chronic gastritis without bleeding (principal); K21.9 Gastro-esophageal reflux disease without esophagitis; I10 Essential (primary) hypertension; Z87.01 Personal history of pneumonia (recurrent); Z90.49 Acquired absence of other specified parts of digestive tract; Z98.890 Other specified postprocedural states; Z87.891 Personal history of nicotine dependence; Z80.42 Family history of malignant neoplasm of prostate; Z82.3 Family history of stroke; Z82.49 Family history of ischemic heart disease and other diseases of the circulatory system; Z79.82 Long term (current) use of aspirin; Z79.899 Other long term (current) drug therapy
CPT/HCPCS: 88305; 43239; J2001; J2704

== ENCOUNTER → 2022-11-23 | Outpatient (CLI) | payer OTHER ==
--- NOTE | 2022-11-23 10:07 | FL ---
EXAMINATION TYPE: FL barium swallow DATE OF EXAM: 11/23/2022 9:35 AM COMPARISON: CT chest 01/25/2020 CLINICAL INDICATION:Male, 62 years old with history of R13.10 DYSPHAGIA, UNSPECIFIED; TECHNIQUE: The procedure was explained and patient history elicited. All patient questions were ans wered prior to start of procedure. Multiple spot fluoroscopic images of the esophagus were obtained a fter the oral ingestion of effervescent crystals and liquid barium as the contrast agent. Fluoroscopic time: 31 seconds Fluoroscopic images: 0 Radiographs taken: 136 DAP: Not reported FINDINGS: The esophagus demonstrates normal primary and secondary peristalsis. The esophageal mucosa is smooth without evidence of focal stricture, ulceration, or abnormal outpouching. There was was free flow of contrast extending into the stomach from the esophagus. No gastroesophageal reflux disease was ident ified. IMPRESSION: 1. Normal esophagram.
== END | disposition home or self-care (01) ==
LOC: RADUSWWP 08:52
PROVIDERS: ATTEND Otolaryngology
DX: R13.10 Dysphagia, unspecified (principal)
CPT/HCPCS: 74220

== ENCOUNTER 2022-12-25 15:37 | Observation (INO) | payer OTHER ==
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
[2022-12-25 16:47] LABS: Basophils % (A) 0 %; Eosinophils # (A) 0.1 k/uL (0-0.7); Eosinophils % (A) 1 %; HCT 35.8 % (39.0-53.0); HGB 11.4 gm/dL (13.0-17.5); Lymphocytes # (A) 1.1 k/uL (1.0-4.8); Lymphocytes % (A) 7 %; MCH 27.1 pg (25.0-35.0); MCHC 31.9 g/dL (31.0-37.0); MCV 84.8 fL (80.0-100.0); Mean Platelet Volume 6.3; Monocytes # (A) 0.8 k/uL (0-1.0); Monocytes % (A) 6 %; Neutrophils # (A) 12.1 k/uL (1.3-7.7); Neutrophils % (A) 86 %; Platelet Count 639 k/uL (150-450); RBC 4.22 m/uL (4.30-5.90); RDW 14.3 % (11.5-15.5); WBC 14.1 k/uL (3.8-10.6)
[2022-12-25] MEDS ORDERED: MORPHINE SULFATE 4 MG/ML SYRINGE IV STA ×2 (17:08→18:45)
[2022-12-25] MEDS ORDERED: IBUPROFEN 600 MG TAB PO STA (17:08)
[2022-12-25 17:09] LABS: ALT 30 U/L (4-49); AST 29 U/L (17-59); African American GFR (CKD) >90 (>60 ml/min/1.73 sqM); Albumin 4.1 g/dL (3.5-5.0); Alkaline Phosphatase 104 U/L (38-126); Anion Gap 15 mmol/L; Blood Urea Nitrogen 14 mg/dL (9-20); Calcium 9.4 mg/dL (8.4-10.2); Carbon Dioxide 30 mmol/L (22-30); Chloride 94 mmol/L (98-107); Glucose 99 mg/dL (74-99); Non-African American GFR(CKD) >90 (>60 ml/min/1.73 sqM); Potassium 3.2 mmol/L (3.5-5.1); Sodium 139 mmol/L (137-145); Total Bilirubin 0.4 mg/dL (0.2-1.3)
[2022-12-25] MEDS ORDERED: NALOXONE 0.4 MG/ML 1 ML VIAL IV PRN (18:14)
[2022-12-25] MEDS ORDERED: MAG HYDROX/AL HYDROX/SIMETH 30 ML CUP PO PRN (18:40)
[2022-12-25] MEDS ORDERED: ACETAMINOPHEN TAB 325 MG TAB PO PRN (18:40)
[2022-12-25] MEDS: ONDANSETRON 4 MG/2 ML VIAL IVP PRN (18:52)
[2022-12-25] MEDS: SODIUM CHLORIDE 0.9% 1,000 ML IV SCH (18:52)
[2022-12-25 23:30] LABS: Amorphous Sediment,Urine Occasional /hpf; Appearance,Urine Clear (Clear); Bilirubin,Urine Negative (Negative); Blood,Urine Moderate (Negative); Color,Urine Yellow; Glucose,Urine (UA) Negative (Negative); Hyaline Casts,Urine 4 /lpf (0-2); Ketones,Urine Negative (Negative); Leukocyte Esterase,Urine Negative (Negative); Mucus,Urine Moderate /hpf; Nitrite,Urine Negative (Negative); Protein,Urine Trace (Negative); RBC,Urine 21 /hpf (0-5); Specific Gravity,Urine 1.028 (1.001-1.035); Squamous Epithelial Cell,Urine <1 /hpf (0-4); WBC,Urine 3 /hpf (0-5)
[2022-12-26] MEDS ORDERED: POTASSIUM CHLORIDE ER 10 MEQ TAB.ER.PRT PO STA (02:03)
[2022-12-26] MEDS ORDERED: IPRATROPIUM-ALBUTEROL 3 ML NEB INHALATION PRN (02:04)
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
[2022-12-26] MEDS: MORPHINE SULFATE 4 MG/ML SYRINGE IV PRN ×4 (02:50→21:17)
[2022-12-26] MEDS: SYMBICORT 80-4.5 MCG INHALER INHALATION SCH ×2 (07:27→19:40)
[2022-12-26] MEDS: IPRATROPIUM-ALBUTEROL 3 ML NEB INHALATION SCH ×4 (07:28→19:39)
[2022-12-26] MEDS: hydroCHLOROthiazide 25 MG TAB PO SCH (08:06)
[2022-12-26] MEDS: LOSARTAN 50 MG TAB PO SCH (08:06)
[2022-12-26] MEDS: PANTOPRAZOLE 40 MG TABLET PO SCH (08:06)
[2022-12-26] MEDS: ONDANSETRON 4 MG/2 ML VIAL IVP PRN (09:54)
[2022-12-26 11:01] LABS: Basophils # (A) 0.03 X 10*3/uL (0.00-0.10); Basophils % (A) 0.2 %; Eosinophils # (A) 0.05 X 10*3/uL (0.04-0.35); Eosinophils % (A) 0.4 %; HCT 32.4 % (39.6-50.0); HGB 10.1 g/dL (13.0-17.0); Immature Grans, Automated 0.4 %; Lymphocytes % (A) 6.8 %; MCHC 31.2 g/dL (32.0-37.0); MCV 83.3 fL (80.0-97.0); Mean Platelet Volume 8.5 fL (9.5-12.2); Monocytes # (A) 1.24 X 10*3/uL (0.20-1.00); Monocytes % (A) 9.4 %; NRBC Per 100 WBC 0 /100 WBCS (0.0-0.0); Neutrophils # (A) 10.98 X 10*3/uL (1.80-7.70); Neutrophils % (A) 82.8 %; Platelet Count 568 X 10*3/uL (140-440); RBC 3.89 X 10*6/uL (4.40-5.60); RDW 14.6 % (11.5-14.5); WBC 13.25 X 10*3/uL (4.50-10.00)
[2022-12-26 11:33] LABS: African American GFR (CKD) 134.6 (60.0-200.0); Albumin 3.6 g/dL (3.8-4.9); Albumin/Globulin Ratio 1.16 (1.60-3.17); Anion Gap 11.3 mmol/L (10.00-18.00); BUN/Creat Ratio 22.2 Ratio (12.00-20.00); Blood Urea Nitrogen 11.1 mg/dL (9.0-27.0); Calcium 9.5 mg/dL (8.7-10.3); Carbon Dioxide 26.7 mmol/L (20.0-27.5); Globulin 3.1 g/dL (1.6-3.3); Non-African American GFR(CKD) 116.1 (60.0-200.0); Potassium 3.3 mmol/L (3.5-5.5); Total Bilirubin 0.8 mg/dL (0.30-1.20); Total Protein 6.7 g/dL (6.2-8.2)
[2022-12-26] MEDS: SODIUM CHLORIDE 0.9% 1,000 ML IV SCH (15:38)
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
[2022-12-27] MEDS: MORPHINE SULFATE 4 MG/ML SYRINGE IV PRN ×3 (05:29→15:22)
[2022-12-27] MEDS: SYMBICORT 80-4.5 MCG INHALER INHALATION SCH (08:36)
[2022-12-27] MEDS: IPRATROPIUM-ALBUTEROL 3 ML NEB INHALATION SCH ×3 (08:36→15:40)
[2022-12-27] MEDS ORDERED: LACTATED RINGERS 1,000 ML IV SCH (09:17)
[2022-12-27] MEDS ORDERED: IV FLUID CONTINUATION 1,000 ML IV ONE (09:19)
[2022-12-27] MEDS ORDERED: DEXAMETHASONE SOD PHOSPHATE 4 MG/ML 1 ML VIAL IVP ONE (09:35)
[2022-12-27] MEDS ORDERED: ONDANSETRON 4 MG/2 ML VIAL IVP ONE (09:35)
[2022-12-27] MEDS ORDERED: PROPOFOL 10 MG/ML 20 ML VIAL IV ONE (10:36)
[2022-12-27] MEDS ORDERED: ROCURONIUM 10 MG/ML (5 ML VIAL) IV ONE (10:36)
[2022-12-27] MEDS ORDERED: NEOSTIGMINE 1 MG/ML 10 ML VIAL ONE (10:36)
[2022-12-27] MEDS ORDERED: LIDOCAINE 2% INJ 20 MG/ML (2 ML VIAL) ONE (10:36)
[2022-12-27] MEDS ORDERED: GLYCOPYRROLATE 0.2 MG/ML 2 ML VIAL ONE (10:36)
[2022-12-27] MEDS ORDERED: fentaNYL (PF) 50 MCG/ML 2 ML AMP ONE (10:36)
[2022-12-27] MEDS ORDERED: SUCCINYLCHOLINE CHLORIDE 200 MG/10 ML VIAL IV ONE (10:36)
[2022-12-27] MEDS ORDERED: SODIUM CHLORIDE 0.9% 500 ML 500 ML IV ONE (11:23)
--- NOTE | 2022-12-27 11:39 | P.PN ---
Subjective Progress Note Date: 12/27/22 I am seeing this patient in new consultation today 12/26/2022, in the emergency room, for a suspicious large 8.2 x 3.8 cm right superior mediastinal mass. Patient is a 62-year-old white male with past significant medical history of severe COPD, ex-smoker with a 60-ucas-zheu history, recent 40 pound weight loss over the last year, hypertension. Patient follows with his primary care provider Dr. Buzz Craig for management of his chronic medical issues. 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 Patient presented to the emergency room yesterday afternoon after leaving work early, because of some persistent back pain that is located between his scapula with some associated shortness of breath and dizziness. The pain is worse when lying on his back, especially when trying to sleep. He did have an outpatient CT of the chest without contrast which revealed a large right superior mediastinal mass measuring 8.2 x 3.8 cm, enlarged subcarinal lymph node, and thickened right adrenal gland in which metastasis cannot be ruled out. Patient is currently resting in bed, on room air, in no acute distress. He is very cachectic. A follow-up thoracic spine 2 view x-ray showed some mild to moderate degenerative disc disease without any compression collapse. It also redemonstrated the mass which was better visualized on CT. EKG showed no obvious evidence of acute ischemia. Troponin negative 1. CBC on arrival showed some leukocytosis with a WBC count of 14, hemoglobin 11.4, hematocrit 35.8, platelets 639,000. BMP on arrival showed a sodium 139, potassium 3.2, chloride 94, serum CO2 30, BUN 14, creatinine 0.53, glucose 99. Vital signs are stable. Patient will be admitted the general medical floor once bed available. The patient is seen today 12/27/2022 in follow-up on the regular medical floor. He is currently resting comfortably in bed. Awake and alert in no acute distr ess. Maintaining O2 saturations in the mid 90s on room air. He's been afebrile. Hemodynamically stable. No new labs today. He is continued on Symbicort, DuoNeb inhalations. Morphine for pain control. Objective - Vital Signs Vital signs: Vital Signs Temp 97.4 F L 12/27/22 09:20 Pulse 74 05/18/23 09:45 Resp 16 12/27/22 09:45 BP 153/74 12/27/22 09:20 Pulse Ox 97 12/27/22 09:45 FiO2 Intake & Output 12/26/22 12/27/22 12/27/22 18:59 06:59 18:59 Intake Total 300 600 Balance 300 600 Weight 58.06 kg Intake: IV 600 Oral 300 Other: # Voids 2 2 - Exam GENERAL EXAM: Alert, cachectic 62-year-old male, appears older than stated age, on room air, comfortable in no apparent distress. HEAD: Normocephalic and atraumatic EYES: Normal reaction of pupils, equal size. NOSE: Clear with pink turbinates. THROAT: No erythema or exudates. NECK: No masses, no JVD. CHEST: No chest wall deformity. LUNGS: Equal air entry with diminished lung sounds throughout; no crackles, wheeze, rhonchi or dullness. No conversational dyspnea or accessory muscle use.. CVS: S1 and S2 normal with no audible murmur, regular rhythm. No extra heart so unds ABDOMEN: No hepatosplenomegaly, active bowel sounds, no guarding or rigidity. SPINE: No scoliosis or deformity SKIN: No rashes CENTRAL NERVOUS SYSTEM: No focal deficits, tone is normal in all 4 extremities. EXTREMITIES: There is no peripheral edema, clubbing, or cyanosis. Peripheral pulses are intact. - Labs CBC & Chem 7: 12/26/22 07:24 12/26/22 07:24 Labs: Abnormal Lab Results - Last 24 Hours (Table) 12/26/22 Range/Units 07:24 Sodium 134 L (135-145) mmol/L Potassium 3.3 L (3.5-5.5) mmol/L Creatinine 0.5 L (0.6-1.5) mg/dL BUN/Creatinine Ratio 22.20 H (12.00-20.00) Ratio AST 111 H (14-35) U/L ALT 115 H (10-49) U/L Alkaline Phosphatase 222 H (41-126) U/L Albumin 3.6 L (3.8-4.9) g/dL Albumin/Globulin Ratio 1.16 L (1.60-3.17) g/dL Assessment and Plan Assessment: Persistent back pain located between his scapula and associated shortness of breath secondary to a large right superior mediastinal mass measuring 8.2 x 3.8 cm, enlarged subcarinal lymph node, and thickened right adrenal gland in which metastasis cannot be ruled out. Plan is for bronchoscopy with endobronchial ultrasound with biopsies today Cachexia, with a reported recent 40 pound weight loss over the last year Ex-smoker, with a significant smoking history of 80 pack years Severe chronic obstructive pulmonary disease, currently stable Hypertension History of peptic ulcer Plan: The patient was seen and evaluated Currently stable and on room air Plan is for EBUS with biopsies today MRI of the brain is scheduled as well The patient could be discharged later today if he tolerates the procedure well I have personally seen and examined the patient, performed the documentation and the assessment and plan as written. Number of minutes spent on the visit: 10.
[2022-12-27 12:36] VITALS: RESP 18; TEMP 98.5
[2022-12-27] MEDS: LOSARTAN 50 MG TAB PO SCH (13:05)
[2022-12-27] MEDS: hydroCHLOROthiazide 25 MG TAB PO SCH (13:05)
[2022-12-27] MEDS: PANTOPRAZOLE 40 MG TABLET PO SCH (13:06)
[2022-12-27 13:41] VITALS: BMI 18.3
--- NOTE | 2022-12-27 15:39 | MR ---
EXAMINATION TYPE: MR brain wo/w con DATE OF EXAM: 12/27/2022 COMPARISON: None HISTORY: Mets, Hx of lung cancer CONTRAST: Performed utilizing 5.5 mL intravenous Gadavist gadolinium contrast. TECHNIQUE: Multiplanar, multiecho imaging on a 3.0 Ella magnet is performed through the brain. Stud y is performed within 24 hours of arrival to the hospital. The craniovertebral junction is normal. The pituitary is normal. Diffusion-weighted imaging is performed. No abnormal hyperintensity is present to suggest an acute i ntracranial infarct or acute ischemic change. There are a few scattered punctate areas of hyperintensity on T2 and Inversion Recovery weighted sequ ences which are non-specific but can be related to microvascular ischemic changes. This is not out of proportion for the patient's age. Ventricles and sulci are appropriate for the patient age. There is some fluid within the inferior right mastoid air cells. IMPRESSIONS: 1. No acute intracranial process. 2. No suspicious enhancement or masses to suggest metastatic disease.
--- NOTE | 2022-12-27 15:55 | P.PCN ---
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 Mass effect over the lateral wall of the trachea related to the right suprahilar mass Description of Procedure: Procedure(s) Performed: 1 flexible bronchoscopy, airway inspection 2 endoscopic ultrasound (EBUS) 3 transbronchial needle aspirate of station 7 lymph nodes Surgeon: Estevan Wade Estimated Blood Loss (ml): 0 Pathology: other Condition: stable Disposition: same day Operative Findings: After obtaining the consent the patient was taken to the OR suite he was intubated and put on mechanical ventilation by anesthesia then the flexible bronchoscope was advanced to the ET tube until the trachea was seen. The trachea was abnormal starting from its midportion extending to the level of the flakita. There was irregularities in the lateral surface of the tracheal wall, essentially because irregularities probably related to mass effect caused by a right suprahilar mass. There was also some limited extrinsic compression on the lateral wall of the trachea. Bain and distal one third portion. Following that, the bronchoscope was advanced and the flakita appears normal then the scop e advanced to the left main and JAEL LB1-LB3 were seen and no endobronchial lesions were seen then the scope advanced to the lingula and the LB4 and LB5 were seen and no endobronchial lesions were seen the scope retracted and advanced to the left lower lobes LB6 to LB12 were seen one by one and no endobronchial lesions, then the scope was retracted back to the flakita and advanced to the Right main and right upper lobe bronchus was occluded with endobronchial tumor there was originating in the right suprahilar area and infiltrate in the right upper lobe bronchus causing 95% obstruction of the or ifice of the right upper lobe bronchus. Initial segment of the right upper lobe bronchus were not visualized. The surface of the tumor was friable and vascular an irregular and somewhat necrotic. Following that, the flexible bronchoscope was retracted and advanced to the BI and RML RB4 and RB5 were seen and no endobronchial lesions were seen then it was retracted and advanced to the RLL RB6 to RB12 were seen one by one and no endobronchial lesions. Under direct visualization, endobronchial biopsies of the right upper lobe bronchus tumor was obtained. Multiple endobronchial biopsies were done a total of 7-8 pieces were obtained. Limited bleeding was encountered due to these biopsies and ice cold saline was applied to control the bleeding. Adequate hemostasis was achieved. Following that, I performed endobronchial brushing and bronchial lavage of the right upper lobe endobronchial tumor. By the end of the procedure, a bronchial lavage of the right upper lobe was done, a total of 40 mL of fluid was infused in the right upper lobe intensities of fluid was aspirated. Following that, the flexible bronchoscope was removed and endobronchial ultrasound was inserted. Then EBUS was used and the lymph nodes were examined. Direct examination of the mediastinum revealed extensive lymphadenopathy along the right paratracheal border and subcarinal area. Transbronchial needle aspirate of the subcarinal lymph node was done using a 22. -gauge the TBNA needle. No further biopsies were obtained. The endobronchial ultrasound was removed and the patient was extubated and transferred to recovery in stable condition.
[2022-12-27 17:31] VITALS: BP 117/64; PULSE 73
--- NOTE | 2022-12-28 02:07 | PN ---
PROGRESS NOTE SUBJECTIVE: This 62-year-old white male remains on DuoNeb, Symbicort, HydroDIURIL, Cozaar, Protonix, morphine for pain, saturating 88-94 on room air, blood pressure 120s to 140s over 60s to 70s, pulse 71. He had a brain MRI which has shown no cancer. He had a procedure no by [facility] bronchoscopy which showed endobronchial tumor causing complete obstruction of the right upper lobe bronchus, mass effect over the lateral wall of the upper trachea related to the right suprahilar mass. Waiting for prognosis. Get Oncology to see him prior to discharge. We can wait for pathology and get him on some treatment right away. PROGNOSIS: Guarded. MMODL / IJN: [id number] /
== END 2022-12-27 18:11 | disposition home or self-care (01) ==
LOC: EC 15:37 → 5NMEDONC 18:45 → INTOOBSV 18:45 → 5NMEDONC 22:17
PROVIDERS: ADMIT Family Medicine; ATTEND Family Medicine
DX: C34.11 Malignant neoplasm of upper lobe, right bronchus or lung (principal); J44.9 Chronic obstructive pulmonary disease, unspecified; I10 Essential (primary) hypertension; Z87.01 Personal history of pneumonia (recurrent); Z80.42 Family history of malignant neoplasm of prostate; Z82.49 Family history of ischemic heart disease and other diseases of the circulatory system; R59.0 Localized enlarged lymph nodes; Z87.891 Personal history of nicotine dependence; Z87.11 Personal history of peptic ulcer disease; R63.4 Abnormal weight loss; K21.9 Gastro-esophageal reflux disease without esophagitis; Z79.51 Long term (current) use of inhaled steroids; Z79.899 Other long term (current) drug therapy
CPT/HCPCS: 96376 ×2; 96361 ×2; 96374; 96375; 99285; 36415; 94640 ×4; 93005; 88104; 88108; 88305; 88173; 80053 ×2; 83605; 84484; 85025 ×2; 81001; 88342; 88341; 70553; 31629; 31625; 31623; 31624; 31652; G0378 ×3; J0330; J2270 ×3; J1100; J2710; J2405 ×3; J3010; J2704; A9585; J2001

== ENCOUNTER → 2022-12-25 | Outpatient (CLI) | payer OTHER ==
--- NOTE | 2022-12-25 15:18 | CT ---
EXAMINATION TYPE: CT chest wo con DATE OF EXAM: 12/25/2022 COMPARISON: 01/25/2020 HISTORY: Burning chest Pain. CT DLP: 344 mGycm, Automated exposure control for dose reduction was used. CONTRAST: Performed injected with 0 mL of Isovue 300. TECHNIQUE: Axial images were obtained at 5 mm thick sections. Reconstructed images are reviewed on [employer] computer in the coronal plane. FINDINGS: Portion of the thyroid visualized is normal. There is a right suprahilar mass extending along the mediastinal border measuring 8.2 x 3.8 cm this a ppears to be displacing the esophagus towards the left lateral direction. There may be some compressi on and narrowing of the distal trachea at the level of the aortic arch. Large there is a subcarinal l ymph node which is enlarged measuring 1.7 cm. Mass versus right hilar adenopathy is present. Large left apical bulla is present. There are some scattered mild infiltrates in the medial lung apic es. The ascending aorta diameter at the level of the main pulmonary artery is 3.3 cm. The main pulmonary artery diameter at the bifurcation is 2.[address] sections are obtained through the upper abdomen. There is thickening of the right adrenal gland 1.9 cm. Metastasis should be considered. Peripelvic cyst or left renal cyst is present. IMPRESSIONS: 1. Large right superior mediastinal mass measuring 8.2 x 3.8 cm. Workup for neoplasm recommended. 2. Enlarged subcarinal lymph node. Hilar adenopathy may be difficult to differentiate from the medias tinal mass. 3. Thickened right adrenal gland, metastasis should be considered.
--- NOTE | 2022-12-25 16:43 | XR ---
EXAMINATION TYPE: XR thoracic spine 2V DATE OF EXAM: 12/25/2022 COMPARISON: NONE HISTORY: 62-year-old male R07.89, other chest pain, M54.14, radiculopathy. TECHNIQUE: 3 views FINDINGS: Right paratracheal soft tissue prominence. Slight levoconvex curvature of the thoracic spin e. 11 rib-bearing thoracic vertebral bodies. Mild to moderate degenerative disc disease upper third t horacic spine. Vertebral body heights are preserved and alignment is maintained. IMPRESSION: 1. Mild to moderate degenerative disc disease upper third thoracic thoracic spine. No vertebral compr ession collapse or malalignment. 2. Possible right paratracheal abnormal soft tissue. Refer to CT chest same day for further details.
== END | disposition home or self-care (01) ==
LOC: RADCTMAIN 14:17
PROVIDERS: ATTEND Family Medicine
DX: M51.14 Intervertebral disc disorders with radiculopathy, thoracic region (principal); E27.9 Disorder of adrenal gland, unspecified; R22.2 Localized swelling, mass and lump, trunk
CPT/HCPCS: 71250; 72070

== ENCOUNTER → 2023-01-11 | Outpatient (CLI) | payer OTHER ==
--- NOTE | 2023-01-12 08:22 | PE ---
EXAMINATION TYPE: PET CT fusion skull to thigh DATE OF EXAM: 01/11/2023 CLINICAL INDICATION:Male, 63 years old with history of R91.8; TECHNIQUE: Following the intravenous administration of 10.0 mCi of F-18 FDG, whole body images are performed from the skull base to the midthigh. Images are reviewed on the computer in the coronal, a xial, and sagittal planes. Reconstructed rotating images are created on independent workstation and reviewed on the computer. A non-contrast CT is performed in conjunction with the PET scan. Glucose level 103 mg/dL COMPARISON: CT 12/25/2022, PET/CT None, FINDINGS: Mediastinal SUV mean is 1.3. Hepatic parenchyma SUV mean is 1.6. SKULL BASE AND NECK: No suspicious radiotracer activity. CHEST, MEDIASTINUM, AND HILAR REGION: Conglomerate right upper lung mass which is medial and invades into the mediastinum measuring at leas t 7.8 x 6.8 x 9.3 cm. The mass invades into the mediastinum with ill-defined borders and surrounds th e esophagus and trachea with at least near 180 degrees and certain portions. ABDOMEN AND PELVIS: No suspicious radiotracer activity. SPECT physiologic tracer within the right low er quadrant max SUV 9.6. OSSEOUS STRUCTURES: Several follicular radiotracer activity within the right inferior scapula max SUV 2.[address]: Atherosclerosis of the arterial vasculature including the carotid bifurcations. Left renal cysts large stool burden throughout the colon. Prostatomegaly. Large bullous emphysema in the left mati ng apex. Additional paraseptal emphysema changes in the right lung apex with some suspected groundgla ss opacities likely representing pulmonary vascular congestion in setting of lymphogenic carcinomatos is. IMPRESSION: Right upper lung mass compatible with malignancy which invades into the mediastinum. This mass does s tart to encircle the trachea and esophagus. No definitive metastatic disease at this time however the re is a very subtle low level focus of the right scapula with increased uptake just above background with indeterminate. There is some vascular congestion the right upper lung which could represent lymp hangitic carcinomatosis.
== END | disposition home or self-care (01) ==
LOC: RADPETMAIN 14:55
PROVIDERS: ATTEND Internal Medicine Hematology & Oncology
DX: R91.8 Other nonspecific abnormal finding of lung field (principal)
CPT/HCPCS: 78815; A9552

== ENCOUNTER 2023-01-24 11:40 | Emergency (ER) | payer OTHER ==
[2023-01-24 11:53] VITALS: TEMP 97.5
[2023-01-24] MEDS ORDERED: ONDANSETRON 4 MG/2 ML VIAL IVP STA (12:52)
[2023-01-24] MEDS ORDERED: LORazepam 2 MG/ML INJ IV STA ×2 (12:52→16:06)
[2023-01-24] MEDS ORDERED: MORPHINE SULFATE 2 MG/ML SYRINGE IVP STA ×2 (12:52→16:06)
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
[2023-01-24 13:28] LABS: Basophils % (A) 0 %; Eosinophils # (A) 0.1 k/uL (0-0.7); Eosinophils % (A) 1 %; HCT 34.2 % (39.0-53.0); HGB 10.9 gm/dL (13.0-17.5); Lymphocytes # (A) 1.1 k/uL (1.0-4.8); Lymphocytes % (A) 6 %; MCH 25.7 pg (25.0-35.0); MCHC 31.8 g/dL (31.0-37.0); MCV 80.7 fL (80.0-100.0); Mean Platelet Volume 7.2; Monocytes % (A) 5 %; Neutrophils # (A) 15.8 k/uL (1.3-7.7); Neutrophils % (A) 87 %; Platelet Count 599 k/uL (150-450); RBC 4.23 m/uL (4.30-5.90); RDW 14.5 % (11.5-15.5); WBC 18.2 k/uL (3.8-10.6)
[2023-01-24 13:49] LABS: ALT 21 U/L (4-49); AST 22 U/L (17-59); African American GFR (CKD) >90 (>60 ml/min/1.73 sqM); Albumin 4.1 g/dL (3.5-5.0); Alkaline Phosphatase 130 U/L (38-126); Anion Gap 12 mmol/L; Blood Urea Nitrogen 15 mg/dL (9-20); Calcium 10.2 mg/dL (8.4-10.2); Carbon Dioxide 27 mmol/L (22-30); Chloride 92 mmol/L (98-107); Glucose 121 mg/dL (74-99); Non-African American GFR(CKD) >90 (>60 ml/min/1.73 sqM); Potassium 3.5 mmol/L (3.5-5.1); Sodium 131 mmol/L (137-145); Total Bilirubin 0.8 mg/dL (0.2-1.3); Total Protein 7.7 g/dL (6.3-8.2)
[2023-01-24 16:33] VITALS: BP 146/81; PULSE 78; RESP 16
== END 2023-01-24 16:58 | disposition home or self-care (01) ==
LOC: EC 11:40
DX: C34.90 Malignant neoplasm of unspecified part of unspecified bronchus or lung (principal); R47.02 Dysphasia; I10 Essential (primary) hypertension; Z87.891 Personal history of nicotine dependence; F12.90 Cannabis use, unspecified, uncomplicated; Z79.899 Other long term (current) drug therapy
CPT/HCPCS: 36415; 80053; 85025; 99284; 96374; 96375 ×2; 96376 ×2; J2060; J2405; J2270